=== PATIENT | female | born 1985 | race Caucasian/White ===

== ENCOUNTER 2020-09-21 14:01 | Emergency (ER) | payer MEDICAID ==
[~2020-09-21] VITALS: Ht 157.5 cm; Wt 63.5 kg
[2020-09-21 15:27] VITALS: BP 128/72; Ht 157.5 cm; Wt 63.5 kg
== END 2020-09-21 15:52 | disposition home or self-care (01) ==
LOC: ED 14:01
DX: N39.0 Urinary tract infection, site not specified (principal)